=== PATIENT | male | born 1980 | race Hispanic/Latino ===

== ENCOUNTER 2017-04-17 22:14 | Emergency (ER) | payer OTHER ==
[~2017-04-17] VITALS: Ht 170.2 cm; Wt 117.9 kg
[2017-04-17] MEDS ORDERED: IBUPROFEN 400 MG TAB PO ONE (23:00)
[2017-04-18] MEDS ORDERED: HYDROCODONE/APAP 5MG-325MG TAB PO ONE
[2017-04-18 00:27] VITALS: BP 126/81
== END 2017-04-18 00:24 | disposition home or self-care (01) ==
LOC: FSED 22:14
DX: S52.91XA Unspecified fracture of right forearm, initial encounter for closed fracture (principal); W01.0XXA Fall on same level from slipping, tripping and stumbling without subsequent striking against object, initial encounter; Y92.008 Other place in unspecified non-institutional (private) residence as the place of occurrence of the external cause
CPT/HCPCS: 99284